=== PATIENT | male | born 1970 | race Caucasian/White ===

== ENCOUNTER 2024-03-08 14:06 | Outpatient (CLI) | payer BC ==
[~2024-03-08 14:06] MED LIST: Magnevist 469MG/ML 20 ML VIAL ONE
== END 2024-03-08 14:07 | disposition home or self-care (01) ==
LOC: CSHMRI 14:06
PROVIDERS: ATTEND Psychiatry & Neurology Neurology
DX: G80.9 Cerebral palsy, unspecified (principal)
CPT/HCPCS: 70553; 76376